=== PATIENT | male | born 1965 | race Two or more races ===

== ENCOUNTER 2023-09-30 16:52 | Emergency (ER) | payer OTHER ==
[~2023-09-30] VITALS: Ht 177.8 cm; Wt 95.6 kg
[2023-09-30] MEDS ORDERED: DOXYCYCLINE 100MG CAPSULE PO STA (17:00)
[2023-09-30] MEDS ORDERED: DOXY-411 PO (17:14)
[2023-09-30 17:54] VITALS: BP 117/66; PULSE 71; RESP 17; TEMP 98.9; O2SAT 99
--- NOTE | 2023-09-30 22:17 | NUR ---
I have reviewed and agree with all interventions, assessments performed and documented by ENVIRONMENTAL SCIENTISTS
== END 2023-09-30 22:19 | disposition home or self-care (01) ==
LOC: ER 16:53
DX: L02.416 Cutaneous abscess of left lower limb (principal)
CPT/HCPCS: 87070; 87077; 87186; 99283